=== PATIENT | female | born 1970 | race Two or more races ===

== ENCOUNTER 2024-04-29 02:10 | Outpatient (CLI) | payer OTHER | END 2024-04-29 03:00 | disposition home or self-care (01) | LOC: PPH VACUNA 02:10 | PROVIDERS: ATTEND Emergency Medicine Pediatric Emergency Medicine | DX: Z23 Encounter for immunization (principal) ==

== ENCOUNTER 2024-05-14 09:38 | Outpatient (CLI) | payer OTHER | END 2024-05-14 09:44 | disposition home or self-care (01) | LOC: MAMO-SONO 09:38 | PROVIDERS: ATTEND Surgery | DX: N60.11 Diffuse cystic mastopathy of right breast (principal); N60.12 Diffuse cystic mastopathy of left breast ==

== ENCOUNTER 2024-08-09 07:14 | Outpatient (CLI) | payer OTHER | END 2024-08-09 07:21 | disposition home or self-care (01) | LOC: SONOGRAMA 07:14 | PROVIDERS: ATTEND Internal Medicine | DX: E03.9 Hypothyroidism, unspecified (principal) ==

== ENCOUNTER 2025-01-14 14:05 | Outpatient (CLI) | payer OTHER ==
[~2025-01-14 14:05] MED LIST: CELECOXIB200 MG PO; METAXALONE800 MG PO
== END 2025-01-14 14:53 | disposition home or self-care (01) ==
LOC: MRI 14:05
PROVIDERS: ATTEND Physical Medicine & Rehabilitation
DX: M54.50 Low back pain, unspecified (principal); M54.2 Cervicalgia; M50.320 Other cervical disc degeneration, mid-cervical region, unspecified level
CPT/HCPCS: 72141

== ENCOUNTER 2025-02-17 07:53 | Outpatient (CLI) | payer OTHER | END 2025-02-17 07:54 | disposition home or self-care (01) | LOC: NUCLEAR 07:53 | PROVIDERS: ATTEND Internal Medicine | DX: R00.8 Other abnormalities of heart beat (principal); E86.0 Dehydration ==